=== PATIENT | female | born 1975 | race Caucasian/White ===

== ENCOUNTER 2018-08-04 08:10 | Inpatient (IN) | payer OTHER ==
[~2018-08-04 08:10] MED LIST: cefOXitin 2 GM Vial ONE
[2018-08-04] MEDS ORDERED: Acetaminophen 500 MG Tab PO ONE ×2 (08:30→09:00)
[2018-08-04] MEDS ORDERED: Gabapentin 300 MG Cap PO ONE (08:30)
[2018-08-04] MEDS ORDERED: Scopolamine 1.5 MG Transdermal Patch TOP SCH (08:30)
[2018-08-04] MEDS ORDERED: cefOXitin 2 GM in Sodium Chloride 0.9% 50 ML IV ONE (09:00)
[2018-08-04] MEDS ORDERED: Celecoxib 200 MG Cap PO ONE (09:00)
[2018-08-04] MEDS ORDERED: Dextrose 5%-Lactated Ringers 1,000 ML IV SCH (09:00)
[2018-08-04] MEDS ORDERED: Methylphenidate 10 MG Tab PO SCH (09:15)
[2018-08-04] MEDS ORDERED: Propofol 200 MG/20 ML SDV ONE ×2 (09:24→09:25)
[2018-08-04] MEDS ORDERED: Ondansetron 4 MG/2 ML SDV ONE (09:25)
[2018-08-04] MEDS ORDERED: Succinylcholine 200 MG/10 ML MDV ONE (09:25)
[2018-08-04] MEDS ORDERED: Neostigmine Methylsulfate 1 MG/ML 5 ML Syringe ONE (09:25)
[2018-08-04] MEDS ORDERED: Dexamethasone 4 MG/ML SDV ONE (09:25)
[2018-08-04] MEDS ORDERED: fentaNYL 250 MCG/5 ML SDV ONE ×3 (09:25→13:42)
[2018-08-04] MEDS ORDERED: Glycopyrrolate 0.2 MG/ML 5 ML MDV ONE (09:25)
[2018-08-04] MEDS ORDERED: Rocuronium 50 MG/5 ML Vial ONE ×2 (09:25→12:34)
[2018-08-04] MEDS ORDERED: Lactated Ringers 1,000 ML ONE (09:28)
[2018-08-04] MEDS ORDERED: Lidocaine 2% 100 MG/5 ML Syringe IVPUSH SCH (10:00)
[2018-08-04] MEDS ORDERED: Ketamine 500 MG/5 ML MDV IV SCH (10:00)
[2018-08-04] MEDS ORDERED: Ropivacaine 60 ML, Dexamethasone 8 MG, EPINEPHrine 0.4 MG, Sodium Chloride 0.9% 17.6 ML NERVRT SCH ×4 (10:00)
[2018-08-04] MEDS ORDERED: Ketamine 50 MG in Sodium Chloride 0.9% 49.5 ML IV SCH (10:00)
[2018-08-04] MEDS ORDERED: Lidocaine 0.4%/D5W 2 GM/500 ML BAG IV SCH (10:00)
[2018-08-04] MEDS ORDERED: Labetalol 20 MG/4 ML Syringe ONE (13:20)
[2018-08-04] MEDS ORDERED: hydrOXYzine HCl 100 MG/2 ML SDV IM PRN (16:15)
[2018-08-04] MEDS ORDERED: HYDROmorphone 0.5 MG/0.5 ML Syringe IVPUSH PRN (16:15)
[2018-08-04] MEDS ORDERED: Ondansetron 4 MG/2 ML SDV IVPUSH PRN (16:15)
[2018-08-04] MEDS ORDERED: Labetalol 20 MG/4 ML Syringe IVPUSH PRN (16:15)
[2018-08-04] MEDS ORDERED: Albuterol/Ipratropium 3.0-0.5 MG/3 ML Neb Soln INH PRN (16:15)
[2018-08-04] MEDS ORDERED: diphenhydrAMINE 50 MG/ML SDV IVPUSH PRN (16:15)
[2018-08-04] MEDS ORDERED: HYDROmorphone 1 MG/ML Syringe IV PRN (16:15)
[2018-08-04] MEDS ORDERED: Pantoprazole 40 MG Vial IVPUSH SCH (16:30)
[2018-08-04] MEDS: Acetaminophen Soln 650 MG/20.3 ML UD Cup PO SCH ×2 (17:20→23:49)
[2018-08-04] MEDS: Heparin Sodium 5,000 Units/ML Vial SUBCUT SCH (17:21)
[2018-08-04] MEDS: cefOXitin 2 GM in Sodium Chloride 0.9% 50 ML IV SCH ×2 (17:28→23:49)
[2018-08-04] MEDS ORDERED: MVI, Adult with Vitamin K 10 ML, Thiamine 200 MG, Chromium/Copper/Mang/Selen/Zn 1 ML in... IV SCH ×4 (18:00)
[2018-08-04] MEDS: Metoclopramide 10 MG/2 ML SDV IVPUSH PRN (21:37)
[2018-08-04] MEDS: Gabapentin 250 MG/5 ML Solution ML 470 ML Bottle PO SCH (22:02)
[2018-08-04] MEDS: Albuterol/Ipratropium 3.0-0.5 MG/3 ML Neb Soln INH SCH (22:02)
[2018-08-04] MEDS: LORazepam 2 MG/ML SDV IVPUSH PRN (22:19)
[2018-08-04] MEDS: Dextrose 5%-Lactated Ringers 1,000 ML IV SCH (23:02)
[2018-08-05] MEDS: Heparin Sodium 5,000 Units/ML Vial SUBCUT SCH ×3 (01:59→17:21)
[2018-08-05] MEDS ORDERED: Iohexol 647 MG/ML 50 ML SDV PO STA (03:48)
[2018-08-05] MEDS: Metoclopramide 10 MG/2 ML SDV IVPUSH PRN (04:41)
[2018-08-05] MEDS: Dextrose 5%-Lactated Ringers 1,000 ML IV SCH (04:57)
[2018-08-05] MEDS: cefOXitin 2 GM in Sodium Chloride 0.9% 50 ML IV SCH ×3 (05:00→17:20)
[2018-08-05] MEDS: Acetaminophen Soln 650 MG/20.3 ML UD Cup PO SCH ×4 (05:00→23:59)
--- NOTE | 2018-08-05 05:15 | CRLCR ---
Indication: Status post Delfina-en-Y surgery. Technique: Abdomen 4 view Comparison: None Findings/Impression: Submitted views of the abdomen show a drain in the left upper quadrant and surgical clips in the right upper quadrant. Oral contrast is present within proximal bowel without definite extraluminal contrast to suggest extravasation on these images. Dictated by Heath Hoffmann MD @ Aug 05 2018 5:10AM Signed by Dr. Heath Hoffmann @ Aug 05 2018 5:12AM
[2018-08-05] MEDS: LORazepam 2 MG/ML SDV IVPUSH PRN (05:28)
[2018-08-05] MEDS: Albuterol/Ipratropium 3.0-0.5 MG/3 ML Neb Soln INH SCH ×4 (07:15→21:11)
--- NOTE | 2018-08-05 07:26 | CRLCR ---
INDICATION: Status post gastric bypass. Evaluate for a leak. TECHNIQUE: Two spot images were acquired of the left side of the abdomen, obtained at 0638 hours and 0639 hours. COMPARISON: 0357 hours. IMPRESSION: There is diluted oral contrast seen in mildly dilated small bowel loops in the left mid abdomen. No definite extraluminal contrast is identified. A surgical drain is present the left upper quadrant. Dictated by Ney Sheikh MD @ 08/05/2018 7:23:11 AM Dictated by: Ney Sheikh MD @ 08/05/2018 07:24:06 (Electronically Signed)
[2018-08-05] MEDS ORDERED: Ondansetron 4 MG Tab.DIS PO PRN (07:38)
[2018-08-05] MEDS ORDERED: Non-Formulary Medication 1 Each (Fexofenadine [Allegra] 180 MG) PO PRN (07:39)
[2018-08-05] MEDS ORDERED: Dextrose 5%-Lactated Ringers 1,000 ML IV SCH (07:45)
[2018-08-05] MEDS: SCOPOLAMINE PATCH CHECK TOP SCH (08:24)
[2018-08-05] MEDS: Celecoxib 200 MG Cap PO SCH (08:25)
[2018-08-05] MEDS: Gabapentin 250 MG/5 ML Solution ML 470 ML Bottle PO SCH ×3 (08:28→21:10)
[2018-08-05] MEDS: Methylphenidate 10 MG Tab PO SCH ×3 (08:28→21:11)
[2018-08-05] MEDS ORDERED: LEVONORGESTREL ETHIN ESTRADIOL PO SCH (09:00)
[2018-08-05] MEDS ORDERED: METHYLPHENIDATE HCL 20 MG PO SCH (09:00)
[2018-08-05] MEDS ORDERED: MEDROXYPROGESTERONE 10 MG PO SCH (09:00)
[2018-08-05] MEDS ORDERED: Non-Formulary Medication 1 Each (Venlafaxine [Effexor Xr] 150 MG) PO SCH (09:00)
[2018-08-05] MEDS: Venlafaxine 75 MG Cap.ER PO SCH ×2 (09:59→21:11)
[2018-08-05] MEDS ORDERED: Loratadine 10 MG Tab.DIS PO PRN (10:14)
[2018-08-05] MEDS: LEVONORGESTREL PO SCH (10:38)
[2018-08-05] MEDS: ETHIN ESTRADIOL PO SCH (10:38)
--- NOTE | 2018-08-05 11:22 | PN ---
DATE OF SERVICE: 08/05/2018 SUBJECTIVE: Desi is postoperative day #1. Her upper GI this morning was normal. She had some problems with nausea, has been taking Zofran, Reglan and Ativan to help with this. She states this morning it is better. Pain has been controlled. REVIEW OF SYSTEMS: Remainder of review of systems was negative for any pertinent positives and negatives. OBJECTIVE: GENERAL: Desi is a 43-year-old female. She is resting quietly in bed with oxygen per nasal cannula. She did not use her CPAP last night. VITAL SIGNS: TPR is 98.2, 77, 16, and blood pressure 127/78. HEENT: Negative. NECK: Supple. HEART: Regular rate and rhythm. LUNGS: Clear. ABDOMEN: Dressings dry and intact. SHERYL drain has put out 35 mL of a light red drainage. EXTREMITIES: Without peripheral edema and SCDs are on. ASSESSMENT: Laparoscopic Delfina-en-Y gastric bypass surgery, liver biopsy, repair of diaphragmatic hernia, and excision of mediastinal lipoma for morbid obesity, hepatomegaly, diaphragmatic hernia, and mediastinal lipoma. Date of surgery, 08/04/2018. PLAN: 1. Decrease IV to 100 mL per hour. 2. Dressing off, august shower. 3. Step-2 gastric bypass diet without cereal. 4. Communication order, 3 med cups per hour, record at bedside. 5. Walk 6 times a day. 6. Start home medications of. a. Amalia 180 mg p.o. daily p.r.n. rhinitis. b. . c. Ethinyl estradiol 0.15/0.03 one daily. d. Provera 10 mg p.o. daily. e. Ritalin 20 mg p.o. t.i.d. f. Zofran ODT 4 mg every 4 hours p.r.n. nausea or vomiting. g. Effexor XR 150 mg p.o. b.i.d. 7. Good pulmonary toilet. 8. We will evaluate p.r.n. or in a.m. 9. THE PATIENT TO WEAR CPAP AT NIGHT WHILE SLEEPING. Caryl Reese PA-C /[id number]
[2018-08-05] MEDS ORDERED: MVI, Adult with Vitamin K 10 ML, Thiamine 200 MG, Chromium/Copper/Mang/Selen/Zn 1 ML in... IV SCH ×4 (16:00)
[2018-08-05] MEDS ORDERED: Pantoprazole 40 MG Delayed-Release Granules 1 Packet PO SCH (16:30)
[2018-08-06] MEDS: cefOXitin 2 GM in Sodium Chloride 0.9% 50 ML IV SCH (00:01)
[2018-08-06] MEDS: Heparin Sodium 5,000 Units/ML Vial SUBCUT SCH (02:39)
[2018-08-06] MEDS: Acetaminophen Soln 650 MG/20.3 ML UD Cup PO SCH (05:41)
[2018-08-06] MEDS: Albuterol/Ipratropium 3.0-0.5 MG/3 ML Neb Soln INH SCH (07:27)
[2018-08-06] MEDS: Celecoxib 200 MG Cap PO SCH (08:39)
[2018-08-06] MEDS: Venlafaxine 75 MG Cap.ER PO SCH (08:39)
[2018-08-06] MEDS: SCOPOLAMINE PATCH CHECK TOP SCH (08:40)
[2018-08-06] MEDS: LEVONORGESTREL PO SCH (08:41)
[2018-08-06] MEDS: ETHIN ESTRADIOL PO SCH (08:41)
[2018-08-06] MEDS ORDERED: Cyanocobalamin (Vitamin B12) 1,000 MCG/ML SDV IM ONE (09:00)
[2018-08-06] MEDS: Gabapentin 250 MG/5 ML Solution ML 470 ML Bottle PO SCH (09:16)
[2018-08-06] MEDS: Methylphenidate 10 MG Tab PO SCH (09:16)
--- NOTE | 2018-08-07 08:27 | DISCH ---
ADMISSION DIAGNOSES: Morbid obesity BMI 73, anxiety, acid reflux, allergic rhinitis, reactive depression, major depression disorder, sleep apnea with the use of CPAP and condition, unstable. DISCHARGE DIAGNOSES: Laparoscopic Delfina-en-Y gastric bypass surgery, liver biopsy, repair of diaphragmatic hernia, excision of mediastinal lipoma for morbid obesity, hepatomegaly, diaphragmatic hernia, and mediastinal lipoma. Date of surgery 08/04/2018. Surgeon, Gustabo Kendrick MD. HISTORY: Desi Angel is a pleasant 43-year-old female with longstanding history of morbid obesity and increasing comorbidities. After preoperative evaluation and discussion of possible risks and possible complications, she wished to proceed with surgical procedure. HOSPITAL COURSE: Desi had her surgery on 08/04/2018. She had no operative complications. On postoperative day 1, her upper GI was normal. She was started on step 2 gastric bypass diet without cereal. Her activity was good. She received dietary instructions. Vital signs remained stable, and pain was well managed, and she was able to be discharged to home. PHYSICAL EXAMINATION: GENERAL: Desi is a pleasant 43-year-old female. Alert and orientated. VITAL SIGNS: TPR 5 feet 7 inches, weight 467 pounds. BMI 73.1. TPR is 96.8, 78, 18 and blood pressure 123/86. HEENT: Negative. NECK: Supple. HEART: Regular rate and rhythm. LUNGS: Clear. ABDOMEN: Sutures intact. Incision is healing well, 4x4 over SHERYL drain site. Abdominal binder on. EXTREMITIES: Without peripheral edema. DISPOSITION: Discharged home. CONDITION: Stable and improving. FOLLOWUP APPOINTMENT: Caryl Reese PA-C, 08/13/2018 at 10:00 a.m. HOME MEDICATIONS: 1. Tylenol 650 mg q.6 hours p.r.n. pain. 2. Celebrex 200 mg p.o. daily #14. 3. Zofran ODT 4 mg every 4 hours p.r.n. nausea #30. 4. She was to take her scopolamine patch off tomorrow early Saturday a.m. but it had been taken off prior or earlier this morning because it did partly fall off. 5. Amalia 180 mg p.o. daily. 6. Prevacid 30 mg p.o. daily. 7. Levonorgestrel-estradiol 0.15-0.03 one daily. 8. Ritalin 20 mg oral 3 times a day. 9. Effexor XR 300 mg p.o. daily. 10.Discontinue taking ferrous sulfate and multivitamin until after first clinic appointment. DISCHARGE INSTRUCTIONS: Diet: Step 2 gastric bypass diet with no cereal until Saturday08/19/2018. Drink 8 to 10 glasses of water a day. Activity: No lifting greater than 10 pounds for 2 weeks. Walk 6 times daily. Driving: Do not drive for 1 week. Shower/bathing, may shower. Notify provider if any fever, increased pain, nausea, or vomiting. Keep site clean and dry. Wear abdominal binder for 2 weeks and then as tolerated use. Use incentive spirometer 10 times every hour while awake for 1 week.
--- NOTE | 2018-08-12 08:26 | OR ---
DATE OF PROCEDURE: 08/04/2018 PREOPERATIVE DIAGNOSIS: Morbid obesity. POSTOPERATIVE DIAGNOSES: 1. Morbid obesity. 2. Marked hepatomegaly. 3. Paraesophageal diaphragmatic hernia. 4. Mediastinal lipoma. 5. Small bowel mesentery extremely fat laden, necessitating a small bowel resection to facilitate adequate mobility of jejunojejunostomy. OPERATIVE PROCEDURES: 1. Laparoscopic Delfina-en-Y gastric bypass with long limb gastroenterostomy (82866). 2. Michele-Cut needle liver biopsy (32975). 3. Repair of paraesophageal diaphragmatic hernia (92872). 4. Deep excision of mediastinal lipoma (85764). 5. Small bowel resection (66354). ANESTHESIA: General. ECHOCARDIOGRAPHER: Caryl Reese PA-C, and MAXIM Valverde. INDICATION FOR PROCEDURE: This is a 43-year-old female with extreme morbid obesity and BMI of 72, presenting for Delfina-en-Y gastric bypass. Potential risks of the procedure including bleeding, infection, leaks from various GI tract closures, possible bowel obstruction over time as well as possibility of cardiopulmonary, septic, or hemorrhagic complications leading to were all discussed, and the patient wishes to proceed. DETAILS OF PROCEDURE: The patient was taken to the operating room and placed in a supine position. After general endotracheal anesthesia was induced, she was converted to a lithotomy position and the abdomen prepped and draped. At 15 cm inferior and 5 cm left of xiphoid process, a transverse incision was made and the peritoneal cavity entered under direct vision with an Optiview trocar, inflated to 15 mmHg pressure with CO2. Laparoscope was then reinserted. No underlying trocar insertion site injuries were seen. Following this, 5 additional trocars were placed across the upper and mid abdomen. Bilateral subcostal transverse abdominis plane blocks were then placed. The liver was noted to be markedly fatty infiltrated and enlarged, and Michele-Cut needle biopsy was obtained from left lobe of the liver. There was minimal bleeding from the biopsy sites, which was controlled with electrocautery. At this point, the omentum was divided in the midline up to the level of the transverse colon. This allowed identification of small bowel at the ligament of Treitz. The small bowel was then traced out 200 cm distal to that point. The area was divided with a AMY stapler and the small bowel at this level was noted to be quite immobile due to the extreme fat ladenness of the small bowel mesentery, and given this, roughly 10 cm of the biliopancreatic limb was then resected with division of the mesentery with Harmonic scalpel and additional staple line then created for further resection. This was done to facilitate adequate mobility of the Delfina limb up to the area of the gastric pouch to allow a relatively tension-free anastomosis. The small bowel was then traced out an additional 200 cm, and at that level, the side-to- side enteroenterostomy was accomplished with internal firing of the Endo-AMY 60 mm stapler. Common opening was then closed transversely with same stapler and the angles anastomosed and mesenteric defect approximated with some 0 Ethibond stitch, along with 4 mL of fibrin sealant. The Delfina limb was then brought up through an antecolic approach up to the level of the esophagogastric junction without significant tension. The liver was then retracted anteriorly, and the patient was noted to have a moderate-sized paraesophageal diaphragmatic hernia with prolapse of a portion of this, plus gastric fundus, and a tongue of omentum in a plane anterior to the course of the esophagus. This was reduced, and the peritoneum overlying incised and reflected downward. During the course of the dissection, a roughly ping pong ball-sized mediastinal lipoma was encountered, and this was excised to facilitate adequate closure of the diaphragmatic hiatus, which was then accomplished with 0 Ethibond sutures, reinforced with PTFE pledgets. At this point, the gastrointestinal catheter was inflated to 15 mL and pulled up snugly against the EG junction. Gastric wall over the apex balloon was then marked with electrocautery, and balloon catheter deflated and pulled up from the esophagus. The lesser omental tissue adjacent to the gastric cardia was then incised, allowing dissection behind the stomach at that level. Pouch formation was initiated with a AMY stapler at that level, fired transversely and then completed with additional AMY staplers up to and through the angle of His. Of note, the stomach wall was quite thickened. The entire pouch was then made with the black loads. The tissue thickness on completion of the pouch formation at both staple lines appeared to be intact. The divided Delfina limb was then opened and main body of EEA stapler passed several centimeters into the Delfina limb of the small bowel, brought up the anvil and united with it, thus creating the gastrojejunostomy. Upon removal of the stapler, double donuts of mucosa were noted within it. Small bowel was closed off with a vascular staple line. Of note, the EEA in this case was a stapler with a 4.8 mm staple height due to the thickness of the stomach as well as quite marked thickness of the small bowel. The gastrojejunostomy was then reinforced with some 3-0 Vicryl seromuscular stitch, along with fibrin sealant. Leak test was accomplished with injection of 120 mL of air in the gastric pouch while submerged with cefoxitin-containing saline solution, no leaks were identified. Two Deion-Garg drains were then placed adjacent to the gastrojejunostomy, taken out through the subcostal trocar sites with no further problems noted. Trocars were removed and peritoneal cavity deflated. Incisions were closed with some 4-0 Vicryl skin stitch and drains affixed with 4-0 Vicryl stitch as well. The patient was taken to the recovery room in satisfactory condition. There were no evident complications. Physician respiratory assistant, Caryl Reese, played an essential role in assisting in this case, helping to position the patient, retract structures as needed, as well as suturing and cutting sutures when indicated. Her presence improved patient safety and decreased the operative time. Gustabo Kendrick MD /[id number]
== END 2018-08-06 10:07 | disposition home or self-care (01) | DRG 621 ==
LOC: JP.SDSSCHI 08:10 → JP.SDS 08:10 → EDSTATUS 12:00 → JP.MS 15:45
PROVIDERS: ADMIT Surgery; ATTEND Surgery
PROC: 0D164ZA Bypass Stomach to Jejunum, Percutaneous Endoscopic Approach (ICD-10-PCS; principal; 2018-08-04)
PROC: 0FB24ZX Excision of Left Lobe Liver, Percutaneous Endoscopic Approach, Diagnostic (ICD-10-PCS; 2018-08-04)
PROC: 0BQT4ZZ Repair Diaphragm, Percutaneous Endoscopic Approach (ICD-10-PCS; 2018-08-04)
PROC: 0WBC4ZX Excision of Mediastinum, Percutaneous Endoscopic Approach, Diagnostic (ICD-10-PCS; 2018-08-04)
PROC: 0DB94ZZ Excision of Duodenum, Percutaneous Endoscopic Approach (ICD-10-PCS; 2018-08-04)
DX: E66.01 Morbid (severe) obesity due to excess calories (principal); Z68.45 Body mass index [BMI] 70 or greater, adult; R16.0 Hepatomegaly, not elsewhere classified; K44.9 Diaphragmatic hernia without obstruction or gangrene; D17.4 Benign lipomatous neoplasm of intrathoracic organs; K76.0 Fatty (change of) liver, not elsewhere classified; K59.8 Other specified functional intestinal disorders; G47.33 Obstructive sleep apnea (adult) (pediatric); K21.9 Gastro-esophageal reflux disease without esophagitis; Z99.89 Dependence on other enabling machines and devices; F32.9 Major depressive disorder, single episode, unspecified; F41.9 Anxiety disorder, unspecified; J30.9 Allergic rhinitis, unspecified; Z90.49 Acquired absence of other specified parts of digestive tract; Z90.721 Acquired absence of ovaries, unilateral; Z88.5 Allergy status to narcotic agent; Z88.8 Allergy status to other drugs, medicaments and biological substances
CPT/HCPCS: 36415; 74018; 74240; 82962; 86850; 86900; 86901; 88304; 88307; 88313; 94640; A9270-GY; C9113; J0171; J0330; J0694; J1100; J1644; J2001; J2060; J2405; J2704; J2710; J2765; J2795; J3010; J3411; J3420; J3490; J7042; J7050; J7120; J7620-GY; Q9967